=== PATIENT | female | born 1990 | race African-American/Black ===

== ENCOUNTER 2020-03-11 19:56 | Emergency (ER) | payer OTHER, BC ==
[~2020-03-11] VITALS: Ht 154.9 cm; Wt 77.0 kg
[2020-03-11 20:09] LABS: BILIRUBIN,URINE NEGATIVE (NEG); CLARITY,URINE CLOUDY; COLOR,URINE YELLOW; NITRITE,URINE NEGATIVE (NEG); PH,URINE 6.5 (<5.0-8.0); PROTEIN,URINE NEGATIVE (NEG-TRACE); UROBILINOGEN,URINE 0.2 mg/dL (0.2 mg/dL)
--- NOTE | 2020-03-11 20:14 | PHYS DOC ---
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 She states after this happened she began having vaginal bleeding that was a period type amount of bleeding. She states that she is not having any pain. She states she does not have an OB doctor as of yet. Review of Systems: Review of Systems: Constitutional: Denies fever or chills. [] Eyes: Denies change in visual acuity. [] HENT: Denies nasal congestion or sore throat. [] Respiratory: Denies cough or shortness of breath. [] Cardiovascular: Denies chest pain or edema. [] GI: + Kicked in abdomen. Denies abdominal pain, nausea, vomiting, bloody stools or diarrhea. [] : Denies dysuria. +vaginal bleeding[] Musculoskeletal: Denies back pain or joint pain. [] Integument: Denies rash. [] Neurologic: Denies headache, focal weakness or sensory changes. [] Endocrine: Denies polyuria or polydipsia. [] Lymphatic: Denies swollen glands. [] Psychiatric: Denies depression or anxiety. [] Heart Score: Risk Factors: Risk Factors: DM, Current or recent (<one month) smoker, HTN, HLP, family history of CAD, obesity. Risk Scores: Score 0 - 3: 2.5% MACE over next 6 weeks - Discharge Home Score 4 - 6: 20.3% MACE over next 6 weeks - Admit for Clinical Observation Score 7 - 10: 72.7% MACE over next 6 weeks - Early Invasive Strategies Physical Exam: PE: Constitutional: Well developed, well nourished, no acute distress, non-toxic appearance. [] HENT: Normocephalic, atraumatic, bilateral external ears normal, oropharynx mo ist, no oral exudates, nose normal. [] Eyes: PERRLA, EOMI, conjunctiva normal, no discharge. [] Neck: Normal range of motion, no tenderness, supple, no stridor. [] Cardiovascular:Heart rate regular rhythm, no murmur [] Lungs & Thorax: Bilateral breath sounds clear to auscultation [] Abdomen: Bowel sounds normal, soft, no tenderness, no masses, no pulsatile masses. [] Skin: Warm, dry, no erythema, no rash. [] Back: No tenderness, no CVA tenderness. [] Extremities: No tenderness, no cyanosis, no clubbing, ROM intact, no edema. [] Neurologic: Alert and oriented X 3, normal motor function, normal sensory function, no focal deficits noted. [] Psychologic: Affect normal, judgement normal, mood normal. Normal physical exam [] Current Patient Data: Labs: Laboratory Tests Test 03/11/20 20:06 POC Urine HCG, Qualitative Hcg positive (Negative) EKG: EKG: [] Radiology/Procedures: Radiology/Procedures: [] Impression: [id number] [place], [place] [id number] IMAGING REPORT Signed PATIENT: STEVE REED ACCOUNT: [id number] : 1990 LOCATION: ER AGE: 29 SEX: F EXAM STATUS: REG ER ORD. PHYSICIAN: SUDEEP HARVEY APRN REASON: 4 weeks , kicked in stomach, now bleeding PROCEDURE: OB TRANSVAG Obstetric ultrasound transvaginal: Reason for examination: 4 weeks . Kicked in stomach. Now bleeding. Transvaginal ultrasound examination of the pelvis was performed. Uterus measures 10.6 x 5.6 x 6.1 cm in greatest dimensions. There is a 2.8 x 2.8 x 2.2 cm fibroid in the anterior uterine fundus. Gestational sac with a normal oval contour is present in the endometrial cavity measuring 0.9 cm in greatest maintained dimension consistent with gestational age of 5 weeks 5 days. Yolk sac is identified. pole is yet identified. The ovaries were not identified due to bowel gas. No free fluid is seen in the pelvis. IMPRESSION: Intrauterine gestational sac containing a yolk sac is present in the endometrial cavity. A pole is not yet identified. Gestational age is estimated at 5 weeks 5 days with estimated date of confinement of 11/06/2020. 2.8 x 2.8 x 2.2 cm anterior fibroid in the uterus. Electronically signed by: Elva Garay MD (03/11/2020 9:18 PM) [facility] DICTATED and SIGNED BY: ELVA GARAY MD DATE: 03/11/20 [id number] 0 Course & Med Decision Making: Course & Med Decision Making Pertinent Labs and Imaging studies reviewed. (See chart for details) See HPI. Alert and oriented x4. Ambulatory with a steady gait. Skin pink warm and dry. Abdomen soft and nontender. No bruising is seen. Vital signs within normal limits. Ultrasound shows no acute findings. Patient is diagnosed with a threatened mis carriage. Blood work is stable. Urinalysis does not show infection. [] Dragon Disclaimer: Dragon Disclaimer: This electronic medical record was generated, in whole or in part, using a voice recognition dictation system. Departure Departure Impression: Primary Impression: Threatened miscarriage in early Additional Impression: Urinary tract infection Qualified Codes: N39.0 - Urinary tract infection, site not specified; R31.9 - Hematuria, unspecified Disposition: 01 DC HOME SELF CARE/HOMELESS Condition: STABLE Referrals: DANIELLE MCKINNEY Jr, MD Patient Instructions: ABCs of , - Urinary Tract Infection, Threatened Miscarriage Additional Instructions: Drink plenty of fluids. If you begin having bleeding heavy enough that you go through more than 1 pad an hour, severe pain or having very large clots return to the emergency room. Follow-up with an OB doctor soon as possible. Begin taking vitamins. Scripts Cephalexin (CEPHALEXIN) 500 Mg Capsule 1 CAP PO BID, #14 CAP Prov: SUDEEP HARVEY [employer]OUNT EXECUTIVE 03/11/20 SUDEEP HARVEY APRN Mar 11, 2020 20:14
[2020-03-11 20:18] LABS: BACTERIA,URINE MODERATE /HPF (0-FEW); RBC,URINE >40 /HPF (0-2)
[2020-03-11 20:19] LABS: WBC,URINE OCC /HPF (0-4)
[2020-03-11 21:04] LABS: BASO # 0.1 x10^3/uL (0.0-0.2); BASO % 1 % (0-3); EOS % 0 % (0-3); HEMATOCRIT 40.5 % (36.0-47.0); HEMOGLOBIN 13.4 g/dL (12.0-15.5); LYMPH # 3.4 x10^3/uL (1.0-4.8); LYMPH % 28 % (24-48); MEAN CORPUSCULAR HEMOGLOBIN 29 pg (25-35); MEAN CORPUSCULAR HGB CONC 33 g/dL (31-37); MEAN CORPUSCULAR VOLUME 87 fL (79-100); MONO # 0.8 x10^3/uL (0.0-1.1); MONO % 7 % (0-9); NEUT # 7.7 x10^3/uL (1.8-7.7); NEUT % 64 % (31-73); PLATELET COUNT 219 x10^3/uL (140-400); RED BLOOD COUNT 4.67 x10^6/uL (3.50-5.40); RED CELL DISTRIBUTION WIDTH 13.9 % (11.5-14.5)
[2020-03-11 21:12] LABS: CALCIUM 9.3 mg/dL (8.5-10.1); CREATININE 0.8 mg/dL (0.6-1.0); GFR 102.6; POTASSIUM 3.8 mmol/L (3.5-5.1)
--- NOTE | 2020-03-11 21:20 | RAD ---
Obstetric ultrasound transvaginal: Reason for examination: 4 weeks . Kicked in stomach. Now bleeding. Transvaginal ultrasound examination of the pelvis was performed. Uterus measures 10.6 x 5.6 x 6.1 cm in greatest dimensions. There is a 2.8 x 2.8 x 2.2 cm fibroid in the anterior uterine fundus. Gestational sac with a normal oval contour is present in the endometrial cavity measuring 0.9 cm in greatest maintained dimension consistent with gestational age of 5 weeks 5 days. Yolk sac is identified. pole is yet identified. The ovaries were not identified due to bowel gas. No free fluid is seen in the pelvis. IMPRESSION: Intrauterine gestational sac containing a yolk sac is present in the endometrial cavity. A pole is not yet identified. Gestational age is estimated at 5 weeks 5 days with estimated date of confine ment of 11/06/2020. 2.8 x 2.8 x 2.2 cm anterior fibroid in the uterus. Electronically signed by: Elva Polo MD (03/11/2020 9:18 PM) [place]
[2020-03-11 21:22] LABS: ALBUMIN 3.6 g/dL (3.4-5.0); ALBUMIN/GLOBULIN RATIO 0.9 (1.0-1.7); TOTAL BILIRUBIN 0.2 mg/dL (0.2-1.0); TOTAL PROTEIN 7.6 g/dL (6.4-8.2)
[2020-03-11] MEDS ORDERED: CEPH500C PO (21:38)
[2020-03-11 22:08] VITALS: BP 103/57
== END 2020-03-11 22:15 | disposition home or self-care (01) ==
LOC: ER 19:56
DX: O20.0 Threatened abortion (principal); R31.9 Hematuria, unspecified; Z3A.01 Less than 8 weeks gestation of pregnancy
CPT/HCPCS: 36415; 76817; 80053; 81001; 81025; 84702; 85025; 86850; 86900; 86901; 87086; 99284